=== PATIENT | female | born 1945 | race Caucasian/White ===

== ENCOUNTER 2025-05-22 18:30 | Emergency (ER) | payer MEDICARE, OTHER, SELFPAY ==
[2025-05-22 18:33] VITALS: BP 137/97
[2025-05-22 18:52] LABS: Hematocrit 44.5 % (37.0-47.0); Hemoglobin 14.7 g/dL (12.0-16.0); Mean Corp Hgb Conc. 33.0 g/dL (33.0-37.0); Mean Corpuscular Volume 89.7 fL (81.0-99.0); Nucleated Red Blood Cells % 0 %; Platelet Count 155 10^3/uL (130-400); Red Cell Dist. Width 13.4 % (11.5-14.5)
[2025-05-22 19:05] LABS: ALT (SGPT) 23 U/L (0-35); AST (SGOT) 24 U/L (14-36); Albumin 4.2 g/dl (3.5-5.0); Alkaline Phosphatase 59 U/L (38-126); Blood Urea Nitrogen 21 mg/dl (7-17); Calcium 9.8 mg/dl (8.4-10.2); Carbon Dioxide 30 mmol/L (22-30); Chloride 97 mmol/L (98-107); Glucose 134 mg/dl (70-99); Lipase 101 U/L (23-300); Potassium 4.5 mmol/L (3.5-5.1); Sodium 131 mmol/L (135-145); Total Protein 7.2 g/dl (6.3-8.2); eGFR > 60.00
[2025-05-22 22:18] VITALS: BP 140/93
--- NOTE | 2025-05-22 22:37 | ED.GENMED ---
History of Present Illness
<Marianne Renteria DO, Resident - Last Filed: 05/23/25 06:44>
General
Chief Complaint: Abdominal Pain
Source: patient
Exam Limitations: none
Time Seen by Provider: 05/22/25 22:07
Nursing documentation reviewed up to this point in time: agreed with
History of Present Illness
History of Present Illness:
Patient is a 79-year-old female past medical history of hyperlipidemia and cervical cancer s/p chemo and radiation, presenting with abdominal pain. Patient states that the abdominal pain started last night. Patient describes the pain as
epigastric, under her ribs. Describes the pain as transient, 10 out of 10 pain that is most extreme Patient has been eating some fruit and vegetables does not notice any difference in the pain with food. Patient notes that she was nauseous
earlier in the day but does not nauseous now. Patient denies vomiting. Of note patient recently had an endoscopy and a colonoscopy for dysphagia and GI issues. Endoscopy was normal and colonoscopy showed polyps. Patient has chronic diarrhea
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
Review of Systems
<Marianne Renteria DO, Resident - Last Filed: 05/23/25 06:44>
Review of Systems
Allergies reviewed?: Yes
All Other Systems: ROS reviewed and negative except as documented in HPI and ROS
Constitutional: Reports no symptoms
EENT: Reports no symptoms
Respiratory: Reports no symptoms
Cardiac: Reports no symptoms
ABD/GI: Reports abdominal pain, nausea and diarrhea
: Reports no symptoms
Musculoskeletal: Reports no symptoms
Skin: Reports no symptoms
Neurological: Reports headache
Endocrine: Reports no symptoms
Hematologic/Lymphatic: Reports no symptoms
Psychiatric: Reports no symptoms
Phy Exam
<Marianne Renteria DO, Resident - Last Filed: 05/23/25 06:44>
General Physical Exam
General Presentation: well appearing and no apparent distress
General age: appears stated age
General Skin: warm and dry
General Habitus: normal
Cardiovascular Exam
Cardiovascular Exam: regular rate/rhythm
Heart Sounds: normal
Gastrointestinal Exam
Gastrointestinal Exam: normal bowel sounds, soft and tender (Epigastric tenderness)
Neurological Exam
Neurological Exam: alert and oriented x3
Skin Exam
Skin Exam: normal color and warm/dry
Psychiatric Exam
Psychiatric Exam: normal mood/affect
Course
<Marianne Renteria DO, Resident - Last Filed: 05/23/25 06:44>
Orders/Labs/Results
Orders:
Orders
05/22/25 18:41
Complete Blood Count/With Diff Urgent
Comprehensive Metabolic Panel Urgent
Lipase Urgent
05/22/25 22:18
Electrocardiogram (*1) Urgent
Reason for Study: Abdominal Pain
EKG- Treatment ONCE
05/22/25 23:05
Lactate Level [Lactic Acid] Stat
Troponin I Urgent
05/22/25 23:12
0.9% Sodium Chloride 1000 ml [Nss] 1,000 ml IV BOLUS
Morphine Sulfate 4 mg IV NOW STA
05/23/25 00:00
CT Abd/pelvis W Iv Cont Urgent
Reason For Exam: abdominal pain
05/23/25 01:24
Urinalysis Reflex To Culture Urgent
Date Specimen was Collected: 05/23/25
Time Specimen was Collected: 01:24
Abnormal Lab Results
05/22/25
18:41
Absolute Lymphs (auto) 0.8 L 10^3/uL
(1.2-3.4)
Neutrophils % 76.1 H %
(42.2-75.2)
Lymphocytes % 13.6 L %
(20.5-51.1)
Sodium 131 L mmol/L
(135-145)
Chloride 97 L mmol/L
(98-107)
BUN 21 H mg/dl
(7-17)
Glucose 134 H mg/dl
(70-99)
05/22/25 18:41
05/22/25 18:41
Vital Signs
Initial and Last Documented VS:
Initial Vital Signs
Temp Pulse Resp BP Pulse Ox
98.7 F 85 18 137/97 95
05/22/25 18:33 05/22/25 18:33 05/22/25 18:33 05/22/25 18:33 05/22/25 18:33
Last Documented Vital Signs
Temp Pulse Resp BP Pulse Ox
98.7 F 61 16 151/74 97
05/22/25 18:33 05/23/25 06:00 05/23/25 06:00 05/23/25 06:13 05/23/25 06:00
<Lizbeth Salas, DO - Last Filed: 05/23/25 07:22>
Orders/Labs/Results
Orders:
Orders
05/22/25 18:41
Complete Blood Count/With Diff Urgent
Comprehensive Metabolic Panel Urgent
Lipase Urgent
05/22/25 22:18
Electrocardiogram (*1) Urgent
Reason for Study: Abdominal Pain
EKG- Treatment ONCE
05/22/25 23:05
Lactate Level [Lactic Acid] Stat
Troponin I Urgent
05/22/25 23:12
0.9% Sodium Chloride 1000 ml [Nss] 1,000 ml IV BOLUS
Morphine Sulfate 4 mg IV NOW STA
05/23/25 00:00
CT Abd/pelvis W Iv Cont Urgent
Reason For Exam: abdominal pain
05/23/25 01:24
Urinalysis Reflex To Culture Urgent
Date Specimen was Collected: 05/23/25
Time Specimen was Collected: 01:24
Abnormal Lab Results
05/22/25
18:41
Absolute Lymphs (auto) 0.8 L 10^3/uL
(1.2-3.4)
Neutrophils % 76.1 H %
(42.2-75.2)
Lymphocytes % 13.6 L %
(20.5-51.1)
Sodium 131 L mmol/L
(135-145)
Chloride 97 L mmol/L
(98-107)
BUN 21 H mg/dl
(7-17)
Glucose 134 H mg/dl
(70-99)
05/22/25 18:41
05/22/25 18:41
Vital Signs
Initial and Last Documented VS:
Initial Vital Signs
Temp Pulse Resp BP Pulse Ox
98.7 F 85 18 137/97 95
05/22/25 18:33 05/22/25 18:33 05/22/25 18:33 05/22/25 18:33 05/22/25 18:33
Last Documented Vital Signs
Temp Pulse Resp BP Pulse Ox
98.7 F 61 16 151/74 97
05/22/25 18:33 05/23/25 06:00 05/23/25 06:00 05/23/25 06:13 05/23/25 06:00
<Marianne Renteria DO, Resident - Last Filed: 05/23/25 06:44>
MDM/Problems Addressed
Differential Diagnosis Includes:
Appendicitis, cholecystitis, duodenal ulcer, gastritis, ischemia
MDM/Problems Addressed:
Will order EKG and troponin to assess cardiac etiology. Lipase is within normal limits. Will order lactate to assess for ischemia. Will order CT abdomen pelvis with contrast.
2: 00 CT abdomen pelvis with IV contrast indicated findings of enteritis. Small bowel obstruction unlikely. No appendicitis. No evidence of hydroureter nephrosis or obstructing stone. No AAA.
3: 40 patient is tolerating water with minimal abdominal pain. Discussed with patient that this is likely self-limited and that her symptoms will improve. Patient ready for discharge.
<Marianne Renteria DO, Resident - Last Filed: 05/23/25 06:44>
*Radiology
Radiology exam reviewed: radiology read reviewed
*Pulse Oximetry
SaO2: 95
Oxygen Mode of Delivery: Room air
Patient hypoxic: no
*Critical Care Note
Total Time (30-74mins, 75-104mins- exclusive of procedures): Not Applicable
ED Attending Note
<Marianne Renteria DO, Resident - Last Filed: 05/23/25 06:44>
-
Portions of this chart may have been created with voice recognition software.� Occasional wrong word or��sound alike� substitutions may have occurred due to the inherent limitations of voice recognition software.
<Lizbeth Salas DO - Last Filed: 05/23/25 07:22>
ED Attending Note
Patient seen and examined by attending physician: Yes
I performed the substantive portion of visit, reviewed & personally made and approve the management plan that is documented in note by myself or FANTASMA.: Yes
ED Attending Note:
This is a 79-year-old woman with history of hyperlipidemia, GERD, cervical cancer status post radiation and chemotherapy treatment 9 years ago. No history of recurrence. She has remote history of an oophorectomy over 40 years ago.
She presents with generalized crampy upper abdominal pain that began over 24 hours ago shortly after consuming an orange. Crampy upper abdominal pain has persisted throughout the day today with intermittent waves of moderate to severe pain. She
admits to intermittent mild nausea but has had no vomiting. No history of similar episodes in the past.
She passed 3 somewhat loose nonbloody stools this morning and admits to chronic diarrhea over the past 9 years status post radiation for cervical cancer. She has not had a bowel movement since this morning. She does admit to some abdominal bloating
She has had some ongoing dysphagia, follows with GI and underwent reportedly unremarkable endoscopy and colonoscopy within the past month.
She denies fever and or chills, no chest pain or cough no shortness of breath, no back nor flank pain, no dysuria and urgency and or hematuria. She has not been taking anything for discomfort.
79-year-old woman appears her stated age, awake and alert, pleasant, appears in no acute distress.
Oral mucosa is minimally dry.
Heart is regular rate and rhythm.
Lungs are clear to auscultation. No respiratory distress.
Abdomen: Soft, minimally distended, mild tenderness mid abdomen/periumbilical, no palpable masses, mildly hypoactive bowel sounds.
Skin is warm and dry, normal color. Good turgor.
Concern for small bowel obstruction, gastroenteritis, ischemic bowel, pancreatitis, cholecystitis, colitis, ACS.
Labs thus far are unremarkable. Will check troponin, lactic acid, EKG and will plan for CT abdomen pelvis with IV contrast.
Will initiate IV fluids and medicate for pain.
03:30
CAT scan shows enteritis. No evidence of bowel obstruction.
Patient tolerating oral fluids.
Minimal intermittent abdominal discomfort but overall markedly improved and has not required additional pain medication save for initial dose.
I suspect enteritis is either foodborne versus viral.
Recommend supportive measures, limiting diet to clear liquids today, slowly advance as tolerated.
Will prescribe Zofran for as needed nausea, Bentyl for as needed abdominal discomfort.
Prompt follow-up with PCP for recheck.
Return precautions discussed.
Discharge Plan
Departure
Patient Disposition: Home (Routine Discharge)
Date of Disposition: 05/23/25
Time of Disposition: 03:40
Patient with high blood pressure during this ER visit?: Yes
Discharge Problem:
Enteritis
Instructions: Abdominal Pain, BLOOD PRESSURE
Prescriptions:
New
ondansetron 4 mg tablet,disintegrating
4 mg PO QID PRN (Reason: nausea and vomiting) Qty: 20 0RF
dicyclomine 10 mg capsule
10 mg PO QID PRN (Reason: abdominal pain) Qty: 10 0RF
No Action
multivitamin [Daily Multivitamin] Tablet
1 tab PO DAILY
atorvastatin 10 mg Tablet
10 mg PO DAILY
omeprazole 40 mg Capsule,Delayed Release(Dr/Ec)
40 mg PO DAILY
ICaps AREDS2 250 mg-200 unit -12.5 mg-1 mg Capsule
1 cap PO DAILY
Referrals:
Alfonso Arreola MD [Family Provider, Family Practice]
Activity Restrictions/Additional Instructions:
Please return if symptoms worsen. Please make follow-up appointment with primary care provider.
Interventions
Interventions:
*Risk Screen - Suicide Last Done: 05/22/25 18:33
*General Assessment Last Done: 05/22/25 22:06
*Neglect/Abuse Screening Last Done: 05/22/25 22:06
*ED- Fall Risk Assessment Last Done: 05/22/25 22:06
*ED COVID-19 Vaccine History Last Done: 05/22/25 22:06
*Nursing Disposition Last Done: 05/23/25 06:10
XP-Rxzpys-Wzgdabqqeg Assessment Last Done: 05/22/25 22:06
Discharge Date and Time
Discharge Date/Time: 05/23/25 06:10
Print Language: ICELANDIC
[2025-05-22 23:00] VITALS: BP 129/75
[2025-05-22] MEDS: NSS 1000 IV (23:21)
[2025-05-22] MEDS: MORPHINE SULFATE 4 MG IV (23:23)
[2025-05-22 23:51] LABS: Troponin I < 0.012 ng/ml
[2025-05-23] VITALS (7 sets, daily range): BP systolic 115–151; BP diastolic 64–85
[2025-05-23 01:35] LABS: Urine Character Clear (Clear)
== END 2025-05-23 06:10 | disposition home or self-care (01) ==
LOC: EMR 18:30
PROVIDERS: Emergency Medicine; EMERGENCY PHYSICIAN Emergency Medicine; FAMILY PHYSICIAN Family Medicine
DX: K52.9 Noninfective gastroenteritis and colitis, unspecified (principal); E78.5 Hyperlipidemia, unspecified; C53.9 Malignant neoplasm of cervix uteri, unspecified; Z92.3 Personal history of irradiation; Z92.21 Personal history of antineoplastic chemotherapy; Z90.721 Acquired absence of ovaries, unilateral
CPT/HCPCS: 96374; 96361; 99284; 74177; 80053; 81003; 83605; 83690; 84484; 85025; 93005; Q9967